=== PATIENT | male | born 1960 | race Caucasian/White ===

== ENCOUNTER → 2020-05-11 14:59 | Outpatient (BNVA) | payer MEDICARE, MEDICAID, SELFPAY | PROVIDERS: PCP Internal Medicine; Referring Provider Internal Medicine; Visit Provider Physician Assistant | DX: Z13.89 Encounter for screening for other disorder (principal) | CPT/HCPCS: Q3014 ==

== ENCOUNTER 2020-09-14 08:43 | Outpatient (REF) | payer OTHER, SELFPAY ==
[2020-09-14 11:38] LABS: Estimated Average Glucose 131 mg/dL; Hemoglobin A1C 189.1864 umol/L; Hemoglobin A1c % 6.2 %
[2020-09-14 12:03] LABS: Alanine Aminotransferase 44 U/L (0-40); Anion Gap 13 (12-20); Aspartate Amino Transferase 29 U/L (5-37); Blood Urea Nitrogen 17 mg/dL (9-16); Calcium 9.4 mg/dL (8.4-10.2); Carbon Dioxide 23 mmol/L (22-29); Chloride 108 mmol/L (96-108); Cholesterol 177 mg/dL; Estimated Glomerular Filt Rate > 60; Glucose Fasting 115 mg/dL (60-99); HDL Cholesterol 45 mg/dL; LDL Cholesterol Calculated 97 mg/dl; Potassium 4.5 mmol/L (3.3-5.1); Sodium 139 mmol/L (135-145); Triglycerides 177 mg/dL
[2020-09-14 12:07] LABS: PSA,Total (Free>4and<10) 1.01 ng/mL (0.00-4.00)
[2020-09-14 12:22] LABS: Creatinine Urine 226.51 mg/dL; Microalbum/Creatinine Ratio Ur 6.6 ug/mg cr
== END 2020-09-14 08:44 | disposition home or self-care (01) ==
LOC: HO.HMGCLDS 08:43
PROVIDERS: PCP Internal Medicine; Visit Provider Internal Medicine
DX: Z00.01 Encounter for general adult medical examination with abnormal findings (principal); Z12.5 Encounter for screening for malignant neoplasm of prostate; E11.9 Type 2 diabetes mellitus without complications; E78.5 Hyperlipidemia, unspecified; J44.9 Chronic obstructive pulmonary disease, unspecified; N40.0 Benign prostatic hyperplasia without lower urinary tract symptoms; I10 Essential (primary) hypertension
CPT/HCPCS: 36415; 80048; 80061; 82043; 83036; 84153; 84450; 84460

== ENCOUNTER 2021-07-20 14:49 | Outpatient (REF) | payer OTHER, SELFPAY ==
[2021-07-20 16:46] LABS: Creatinine Urine 191.36 mg/dL; Microalbum/Creatinine Ratio Ur 11.4 ug/mg cr
[2021-07-20 17:01] LABS: Vitamin D 25-OH Total 20.6 ng/mL (>30)
== END 2021-07-20 14:50 | disposition home or self-care (01) ==
LOC: HO.HMGCLDS 14:49
PROVIDERS: PCP Internal Medicine; Visit Provider Internal Medicine
DX: E11.9 Type 2 diabetes mellitus without complications (principal)
CPT/HCPCS: 36415; 82043; 82306

== ENCOUNTER 2021-10-02 11:15 | Outpatient (REF) | payer OTHER, SELFPAY ==
[2021-10-02 14:39] LABS: Alanine Aminotransferase 56 U/L (0-40); Anion Gap 13 (12-20); Aspartate Amino Transferase 33 U/L (5-37); Blood Urea Nitrogen 12 mg/dL (9-16); Calcium 9.1 mg/dL (8.4-10.2); Carbon Dioxide 22 mmol/L (22-29); Chloride 108 mmol/L (96-108); Cholesterol 172 mg/dL; Estimated Glomerular Filt Rate > 60; Glucose Fasting 139 mg/dL (60-99); HDL Cholesterol 41 mg/dL; LDL Cholesterol Calculated 100 mg/dl; Potassium 4.6 mmol/L (3.3-5.1); Sodium 138 mmol/L (135-145); Triglycerides 159 mg/dL
[2021-10-02 20:18] LABS: Estimated Average Glucose 197 mg/dL; Hemoglobin A1c % 8.5 %
== END 2021-10-02 11:16 | disposition home or self-care (01) ==
LOC: HO.HMGCLDS 11:15
PROVIDERS: Visit Provider Internal Medicine
DX: E78.5 Hyperlipidemia, unspecified (principal); I10 Essential (primary) hypertension; E11.9 Type 2 diabetes mellitus without complications
CPT/HCPCS: 36415; 80048; 80061; 83036; 84450; 84460

== ENCOUNTER 2022-01-11 08:29 | Outpatient (REF) | payer OTHER, SELFPAY ==
[2022-01-11 11:24] LABS: Estimated Average Glucose 140 mg/dL; Hemoglobin A1c % 6.5 %
[2022-01-11 11:51] LABS: Vitamin D 25-OH Total 55.7 ng/mL (>30)
[2022-01-11 11:52] LABS: Alanine Aminotransferase 46 U/L (0-40); Anion Gap 15 (12-20); Aspartate Amino Transferase 31 U/L (5-37); Blood Urea Nitrogen 16 mg/dL (9-16); Calcium 9.2 mg/dL (8.4-10.2); Carbon Dioxide 21 mmol/L (22-29); Chloride 107 mmol/L (96-108); Cholesterol 157 mg/dL; Estimated Glomerular Filt Rate > 60; Glucose Fasting 116 mg/dL (60-99); HDL Cholesterol 50 mg/dL; LDL Cholesterol Calculated 88 mg/dl; Potassium 4.5 mmol/L (3.3-5.1); Sodium 138 mmol/L (135-145); Triglycerides 98 mg/dL
== END 2022-01-11 08:30 | disposition home or self-care (01) ==
LOC: HO.HMGCLDS 08:29
PROVIDERS: PCP Internal Medicine; Visit Provider Internal Medicine
DX: E11.65 Type 2 diabetes mellitus with hyperglycemia (principal); E78.5 Hyperlipidemia, unspecified; E55.9 Vitamin D deficiency, unspecified
CPT/HCPCS: 36415; 80048; 80061; 82306; 83036; 84450; 84460

== ENCOUNTER 2022-08-03 09:05 | Outpatient (REF) | payer OTHER, SELFPAY ==
[2022-08-03 12:03] LABS: Estimated Average Glucose 174 mg/dL; Hemoglobin A1c % 7.7 %
[2022-08-03 12:37] LABS: Alanine Aminotransferase 52 U/L (0-40); Anion Gap 15 (12-20); Aspartate Amino Transferase 33 U/L (5-37); Blood Urea Nitrogen 18 mg/dL (9-16); Calcium 9.5 mg/dL (8.4-10.2); Carbon Dioxide 22 mmol/L (22-29); Chloride 106 mmol/L (96-108); Cholesterol 191 mg/dL; Estimated Glomerular Filt Rate > 60; Glucose Fasting 161 mg/dL (60-99); HDL Cholesterol 41 mg/dL; LDL Cholesterol Calculated 120 mg/dl; PSA,Total (Free>4and<10) 1.01 ng/mL (0.00-4.00); Potassium 4.5 mmol/L (3.3-5.1); Sodium 138 mmol/L (135-145); Triglycerides 154 mg/dL; Vitamin D 25-OH Total 28.5 ng/mL (>30)
[2022-08-03 12:58] LABS: Creatinine Urine 160.14 mg/dL; Microalbum/Creatinine Ratio Ur 16.8 ug/mg cr
== END 2022-08-03 09:06 | disposition home or self-care (01) ==
LOC: HO.HMGCLDS 09:05
PROVIDERS: PCP Internal Medicine; Visit Provider Internal Medicine
DX: N40.0 Benign prostatic hyperplasia without lower urinary tract symptoms (principal); E78.5 Hyperlipidemia, unspecified; E11.9 Type 2 diabetes mellitus without complications; J44.9 Chronic obstructive pulmonary disease, unspecified; Z12.5 Encounter for screening for malignant neoplasm of prostate
CPT/HCPCS: 36415; 80048; 80061; 82043; 82306; 83036; 84153; 84450; 84460

== ENCOUNTER 2022-11-20 07:24 | Outpatient (REF) | payer OTHER, SELFPAY ==
[2022-11-20 11:29] LABS: Estimated Average Glucose 229 mg/dL; Hemoglobin A1c % 9.6 %
[2022-11-20 11:54] LABS: Alanine Aminotransferase 57 U/L (0-40); Anion Gap 12 (12-20); Aspartate Amino Transferase 30 U/L (5-37); Blood Urea Nitrogen 18 mg/dL (9-16); Calcium 9.6 mg/dL (8.4-10.2); Carbon Dioxide 23 mmol/L (22-29); Chloride 103 mmol/L (96-108); Cholesterol 172 mg/dL; Estimated Glomerular Filt Rate > 60; Glucose Fasting 321 mg/dL (60-99); HDL Cholesterol 38 mg/dL; LDL Cholesterol Calculated 69 mg/dl; Potassium 4.3 mmol/L (3.3-5.1); Sodium 134 mmol/L (135-145); Triglycerides 329 mg/dL
[2022-11-20 12:12] LABS: Vitamin D 25-OH Total 65.6 ng/mL (>30)
== END 2022-11-20 07:25 | disposition home or self-care (01) ==
LOC: HO.HMGCLDS 07:24
PROVIDERS: PCP Internal Medicine; Visit Provider Internal Medicine
DX: E11.9 Type 2 diabetes mellitus without complications (principal); E55.9 Vitamin D deficiency, unspecified; E78.5 Hyperlipidemia, unspecified
CPT/HCPCS: 36415; 80048; 80061; 82306; 83036; 84450; 84460

== ENCOUNTER 2023-01-01 12:51 | Outpatient (AMB) | payer OTHER, SELFPAY ==
[2023-01-01 12:52] VITALS: BP 132/78; PULSE 84; O2SAT 96; BMI 28.4
--- NOTE | 2023-01-01 12:52 | MHC.PC.OV ---
Vital Signs 01/01/23 12:52 Height 5 ft 9 in Weight 192 lb BMI 28.4 BP 132/78 Blood Pressure Location Lt brachial Position Sitting Pulse 84 Pulse Source Pulse Oximeter Pulse Oximetry (%) 96 Oxygen Delivery Method Room Air Intake Visit Reasons: 3 month follow up Allergies No Known Allergies [No Known Allergies*] Allergy (Verified 01/01/23 13:12) Medication List - Last Reconciled 01/01/23 by Mariza Berman MD atorvastatin 10 mg PO DAILY blood sugar diagnostic (FreeStyle Lite Strips) Test blood sugar once a day blood-glucose meter (FreeStyle Lite Meter kit) As directed to test blood sugar once a day budesonide-formoterol 160-4.5 mcg/actuation 2 puffs PO BID bupropion HCl 150 mg PO BID calcium carbonate-vitamin D3 600 mg-20 mcg (800 unit) 1 tab PO BEDTIME cholecalciferol (vitamin D3) 1,250 mcg PO QWEEK 30 days dulaglutide (Trulicity) 1.5 mg (0.5 mL) subcut QWEEK 30 days fluticasone propionate 50 mcg/actuation 1 spray intranasal DAILY ipratropium bromide 17 mcg/actuation 2 puffs inhalation QID ipratropium-albuterol 20-100 mcg/actuation (Combivent Respimat) 1 puff inhalation QID lancets (FreeStyle Lancets) test blood sugar once a day metformin 1,000 mg PO BIDWMEAL 90 days montelukast 10 mg PO DAILY omeprazole 20 mg PO QAM quetiapine 100 mg PO DAILY umeclidinium 62.5 mcg/actuation 1 inh inhalation DAILY Tobacco use date assessed: 01/01/23 Dental Screening Dental Screen Date: 01/01/23 Did you have a dental visit in the last 12 months?: No Did you have a dental problem in the last 6 months where you did not have access to dental care?: No Was dental information given to patient?: Patient declined HPI 3 month follow up HPI Details 62-year-old male with diabetes mellitus, hypertension dyslipidemia, here today for his follow-up. Has been taking his medications as directed, but has not been following any diet this past several months, and states that he has not been getting any regular exercise. States that there is a [place] near him and has been eating apple pies, sided donuts, will cider, pasta almost on a daily basis this past few months. Hemoglobin A1c today is at 9.6% and triglycerides have markedly increased as compared to last check. [facility] Medical History (Updated 01/01/23 @ 13:25 by Mariza Berman MD) Uncontrolled diabetes mellitus with hyperglycemia, without long-term current use of insulin Vitamin D deficiency Mass of lower lobe of left lung Lung nodule seen on imaging study Colon cancer screening Cholelithiasis Benign prostatic hyperplasia GERD without esophagitis Obstructive sleep apnea Migraine Dyslipidemia Type 2 diabetes mellitus without complication, without long-term current use of insulin COPD (chronic obstructive pulmonary disease) Surgical History H/O colonoscopy History of amputation of finger History of prostate biopsy History of tonsillectomy Family History Father No problems noted. Mother Cirrhosis of liver Mental health disorder Maternal Grandfather No problems noted. Maternal Grandmother No problems noted. Paternal Grandfather No problems noted. Paternal Grandmother No problems noted. Brother No problems noted. Son No problems noted. Daughter No problems noted. Son No problems noted. Maternal Aunt Substance use disorder Maternal Uncle Substance use disorder Social History Household Members: Significant Other Housing: House Alcohol intake: former Patient Tobacco Use Status: Former Tobacco user Years Smoked: 40 yrs e-Cigarette/Vaping Use: Never Used Current occupational status: disabled Cognitive needs: No Hearing needs: No Vision needs: No Questionnaire PHQ-9 Over the last 2 weeks, how often have you been bothered by any of the following problems? Depression Screening Interpretation: Negative Source: Developed by Drs. Suleiman Thompson, Cherie Carlos, Frank Esqueda and colleagues, with an educational rock from [employer]. Thrive Questionnaire Date Thrive assessed: 08/09/22 AUDIT C Alcohol Use Questionnaire (AUDIT-C) 1. How often do you have a drink containing alcohol?: Never 3. How often do you have six or more drinks on one occasion?: Never Total Score: 0 Score Reviewed/Action Taken: Yes LAZ-7 AMB Questionnaire LAZ-7 Date LAZ - 7 assessed: 08/09/22 Source: Developed by Drs. Suleiman Thompson, Cherie Carlos, Frank Esqueda and colleagues, with an educational rock from [employer]. Review of Systems Const Denies body aches, Denies fatigue, Denies fever(s), Denies headache(s) and Denies weakness Eyes Reports no additional complaints ENT Denies dizziness, Denies headache(s), Denies nasal congestion, Denies nasal discharge and Denies sore throat Card Denies chest pain, Denies lightheadedness, Denies palpitations and Denies dyspnea Resp Denies chest congestion, Denies cough, Denies dyspnea and Reports wheezing (Occasional) GI Denies abdominal pain, Denies change in bowel habits and Denies heartburn Denies dysuria, Reports urinary frequency and Denies urinary urgency Musc Reports no additional complaints Skin/Breast Denies lesions and Denies rash Neuro Denies dizziness, Denies headache(s) and Denies weakness Endo Denies fatigue, Reports polydipsia, Reports polyuria and Denies palpitations Aller/Immun Reports wheezing (Occasional) Physical exam (Primary Care) Vital Signs: Last Vital Signs Pulse 84 01/01/23 12:52 BP 132/78 01/01/23 12:52 Pulse Ox 96 01/01/23 12:52 Oxygen Delivery Method Room Air 01/01/23 12:52 BMI result Body Mass Index 28.4 Tobacco/Smoking Status: Tobacco use Status Tobacco use date assessed 01/01/23 01/01/23 12:53 Patient Tobacco Use Status Former Tobacco user 01/01/23 12:53 e-Cigarette/Vaping Use Never Used 01/01/23 12:53 Depression Screening Interpretation: Negative Thrive Assessment: Date of Thrive Assessment Date Thrive assessed 08/09/22 01/01/23 12:53 Const Other: Alert oriented x3, no acute cardiorespiratory distress Orientation/consciousness: patient oriented x3 HENMT Ears: EAC's normal General nose exam: Normal external nose present and No nasal discharge present Mouth: oropharynx normal and moist mucous membranes Eyes General: appearance normal, both eyes and all related structures Neck Other: Supple, no lymphadenopathy, full range of motion, thyroid gland nonpalpable Resp Auscultation: clear to auscultation bilaterally Cardio Other: S1-S2 present regular rate and rhythm GI Palpation (GI): Soft to palpation, nontender, no guarding and no masses Auscultation: normal bowel sounds Skin General skin exam: no rashes or lesions noted Neuro General: patient oriented x3, gait normal, moves all extremities and no focal motor deficits Extrem General: Yes normal to inspection, Yes full ROM, Yes no joint enlargement, Yes no pedal edema, Yes no calf tenderness and Yes normal gait Results Reviewed Results Reviewed: ENTERED: 11/20/22 MARY SHOEMAKER: ORDERED: Met Prof Fast, AST, ALT, Lipid Panel, Vitamin D 25-OH Test Result Flag Reference Site Sodium 134 L 135-145 mmol/L Potassium 4.3 3.3-5.1 mmol/L CL 103 96-108 mmol/L CO2 23 22-29 mmol/L Gap 12 12-20 BUN 18 H 9-16 mg/dL Creat 1.14 0.5-1.4 mg/dL EGFR > 60 NOTE: For -Chinese individuals, multiply the result by 1.210. Chronic Kidney Disease: Estimated GFR < 60 mL/min/1.73m2 Severe Kidney Disease: Estimated GFR < 15 mL/min/1.73m2 FBS 321 H 60-99 mg/dL A fasting glucose of 126 mg/dl or greater on more than one occasion is considered diagnostic of diabetes. CA 9.6 8.4-10.2 mg/dL AST (GOT) 30 5-37 U/L ALT (GPT) 57 H 0-40 U/L Triglyceride 329 mg/dL Desirable Triglyceride: less than 150 mg/dL Borderline High Triglyceride 150-199 mg/dL High Triglyceride: 200-499 mg/dL Very High Triglyceride: greater than or equal to 5OO mg/dL Chol 172 mg/dL Desirable Cholesterol: less than 200 mg/dL Borderline High Cholesterol: 200-239 mg/dL High Cholesterol: greater than 239 mg/dL LDL Calculated 69 mg/dl Desirable LDL: less than 100 mg/dL Near Optimal/Above Optimal LDL: 110-129 mg/dL Borderline High LDL: 130-159 mg/dL High LDL: 160-189 mg/dL Very High LDL: greater than or equal to 190 mg/dL HDL 38 mg/dL Desirable HDL: greater than 40 mg/dL Note: This HDL assay may give artificially low results in patients with liver disease. Vit D 25-OH Tot 65.6 >30 ng/mL Health Based Reference Values* < 20 ng/mL Deficient 20-30 ng/mL Insufficient > 30 ng/mL Sufficient Laboratory Tests 11/20/22 07:28 Estimat Average Glucose 229 Hemoglobin A1c % 9.6 Assessment and Plan Assessment & Plan (1) Dyslipidemia: Code(s): E78.5 - Hyperlipidemia, unspecified Plan: Reviewed recent fasting lipid profile with patient with levels higher triglyceride levels. Continue with atorvastatin but dose increased to 10 mg daily. Stressed importance of adherence to low-cholesterol diet and regular exercise, at least 30 minutes 3 to 4 times a week. Advised patient to make healthy food choices, eat more fruits, vegetables, whole grains, wild caught fish and low-fat dairy. Limit amount of meat and fried or fatty food products, as well as processed foods and fast foods. Follow-up scheduled with repeat fasting lipid panel in 3 months. (2) Uncontrolled diabetes mellitus with hyperglycemia, without long-term current use of insulin: Code(s): E11.65 - Type 2 diabetes mellitus with hyperglycemia Plan: Diabetes mellitus not controlled, with a hemoglobin A1c at 9.6%, emphasized importance of following recommended diet, getting regular exercise. Continued on present treatment. Will repeat labs again in 3 months Orders: Orders Aspartate Amino Transferase 03/08/23 E11.65 - Type 2 diabetes mellitus with hyperglycemia, E55.9 - Vitamin D deficiency, unspecified, E78.5 - Hyperlipidemia, unspecified Basic Metabolic Panel Fasting 03/08/23 E11.65 - Type 2 diabetes mellitus with hyperglycemia, E55.9 - Vitamin D deficiency, unspecified, E78.5 - Hyperlipidemia, unspecified Vitamin D 25-OH Total 03/08/23 E11.65 - Type 2 diabetes mellitus with hyperglycemia, E55.9 - Vitamin D deficiency, unspecified, E78.5 - Hyperlipidemia, unspecified Hemoglobin A1c 03/08/23 E11.65 - Type 2 diabetes mellitus with hyperglycemia, E55.9 - Vitamin D deficiency, unspecified, E78.5 - Hyperlipidemia, unspecified Alanine Aminotransferase 03/08/23 E11.65 - Type 2 diabetes mellitus with hyperglycemia, E55.9 - Vitamin D deficiency, unspecified, E78.5 - Hyperlipidemia, unspecified Lipid Panel 03/08/23 E11.65 - Type 2 diabetes mellitus with hyperglycemia, E55.9 - Vitamin D deficiency, unspecified, E78.5 - Hyperlipidemia, unspecified Medications: Refilled atorvastatin 10 mg PO DAILY 90 tabs 3RF dulaglutide (Trulicity) 1.5 mg (0.5 mL) subcut QWEEK 30 days 6 mL 3RF E11.9 - Type 2 diabetes mellitus without complications metformin 1,000 mg PO BIDWMEAL 90 days 180 tabs 3RF Coding Level of Care Code Est Pt Level 4 (70875) Diagnoses Dyslipidemia E78.5 Uncontrolled diabetes mellitus with hyperglycemia, without long-term current use of insulin E11.65
== END 2023-01-01 13:55 | disposition home or self-care (01) ==
PROVIDERS: PCP Internal Medicine; Visit Provider Internal Medicine
DX: E78.5 Hyperlipidemia, unspecified (principal); E11.65 Type 2 diabetes mellitus with hyperglycemia
CPT/HCPCS: 99214

== ENCOUNTER 2023-03-27 08:41 | Outpatient (REF) | payer OTHER, SELFPAY ==
[2023-03-27 11:54] LABS: Estimated Average Glucose 169 mg/dL; Hemoglobin A1c % 7.5 % (<6.0)
[2023-03-27 12:24] LABS: Alanine Aminotransferase 38 U/L (0-40); Anion Gap 14 (12-20); Aspartate Amino Transferase 23 U/L (5-37); Blood Urea Nitrogen 17 mg/dL (9-16); Calcium 9.5 mg/dL (8.4-10.2); Carbon Dioxide 22 mmol/L (22-29); Chloride 108 mmol/L (96-108); Cholesterol 164 mg/dL (<200); Estimated Glomerular Filt Rate > 60; Glucose Fasting 128 mg/dL (60-99); HDL Cholesterol 47 mg/dL (>40); LDL Cholesterol Calculated 83 mg/dL (<100); Potassium 4.3 mmol/L (3.3-5.1); Sodium 140 mmol/L (135-145); Triglycerides 171 mg/dL (<150)
[2023-03-27 12:40] LABS: Vitamin D 25-OH Total 38.9 ng/mL (>30)
== END 2023-03-27 08:42 | disposition home or self-care (01) ==
LOC: HO.HMGCLDS 08:41
PROVIDERS: PCP Internal Medicine; Visit Provider Internal Medicine
DX: E11.65 Type 2 diabetes mellitus with hyperglycemia (principal); E55.9 Vitamin D deficiency, unspecified; E78.5 Hyperlipidemia, unspecified
CPT/HCPCS: 36415; 80048; 80061; 82306; 83036; 84450; 84460

== ENCOUNTER 2023-03-29 10:14 | Outpatient (AMB) | payer OTHER, SELFPAY ==
--- NOTE | 2023-03-29 10:25 | MHC.PC.OV ---
Vital Signs 03/29/23 10:29 Height 5 ft 9 in Weight 200 lb BMI 29.5 BP 128/76 Blood Pressure Location Rt brachial Position Sitting Pulse 80 Pulse Source Pulse Oximeter Pulse Oximetry (%) 96 Oxygen Delivery Method Room Air Intake Visit Reasons: follow up Intake Note: pt is here for follow up, routine Bow Machine Operator Required: No Accompanied by: Self / Same As Patient Allergies No Known Allergies [No Known Allergies*] Allergy (Verified 03/29/23 11:37) Medication List - Last Reconciled 03/29/23 by Mariza Berman MD atorvastatin 10 mg PO DAILY blood sugar diagnostic (FreeStyle Lite Strips) Test blood sugar once a day blood-glucose meter (FreeStyle Lite Meter kit) As directed to test blood sugar once a day budesonide-formoterol 160-4.5 mcg/actuation 2 puffs PO BID fluticasone propionate 50 mcg/actuation 1 spray intranasal DAILY ipratropium bromide 17 mcg/actuation 2 puffs inhalation QID ipratropium-albuterol 20-100 mcg/actuation (Combivent Respimat) 1 puff inhalation QID lancets (FreeStyle Lancets) test blood sugar once a day metformin 1,000 mg PO BIDWMEAL 90 days omeprazole 20 mg PO QAM quetiapine 100 mg PO DAILY Trulicity (dulaglutide) 1.5 mg (0.5 mL) subcut QWEEK 30 days NS umeclidinium 62.5 mcg/actuation 1 inh inhalation DAILY Tobacco use date assessed: 03/29/23 Dental Screening Dental Screen Date: 03/29/23 HPI follow up HPI Details 62-year-old male with hypercholesterolemia, diabetes mellitus, without long-term insulin use, history of vitamin-D deficiency, dyslipidemia, here today for follow-up. Has been compliant with taking his medications, and tries to follow recommended diet and has been getting regular exercise. Recent fasting labs done which showed improvement in his diabetes control now with hemoglobin A1c down to 7.5%, fasting lipids are all within normal limits except for mildly elevated triglycerides. [facility] Medical History Uncontrolled diabetes mellitus with hyperglycemia, without long-term current use of insulin Vitamin D deficiency Mass of lower lobe of left lung Lung nodule seen on imaging study Colon cancer screening Cholelithiasis Benign prostatic hyperplasia GERD without esophagitis Obstructive sleep apnea Migraine Dyslipidemia Type 2 diabetes mellitus without complication, without long-term current use of insulin COPD (chronic obstructive pulmonary disease) Surgical History H/O colonoscopy History of amputation of finger History of prostate biopsy History of tonsillectomy Family History Father No problems noted. Mother Cirrhosis of liver Mental health disorder Maternal Grandfather No problems noted. Maternal Grandmother No problems noted. Paternal Grandfather No problems noted. Paternal Grandmother No problems noted. Brother No problems noted. Son No problems noted. Daughter No problems noted. Son No problems noted. Maternal Aunt Substance use disorder Maternal Uncle Substance use disorder Social History Household Members: Significant Other Housing: House Alcohol intake: former Patient Tobacco Use Status: Former Tobacco user Years Smoked: 40 yrs e-Cigarette/Vaping Use: Never Used service: No Current occupational status: disabled Cognitive needs: No Hearing needs: No Vision needs: No Questionnaire PHQ-9 Over the last 2 weeks, how often have you been bothered by any of the following problems? Depression Screening Interpretation: Negative Depression Screening Done: Yes Source: Developed by Drs. Suleiman Thompson, Cherie Carlos, Frank Esqueda and colleagues, with an educational rock from [employer]. Thrive Questionnaire Date Thrive assessed: 08/09/22 LAZ-7 AMB Questionnaire ALZ-7 Date LAZ - 7 assessed: 08/09/22 Source: Developed by Drs. Suleiman Thompson, Cherie Carlos, Frank Esqueda and colleagues, with an educational rock from [employer]. Review of Systems Const Denies body aches, Denies fatigue, Denies fever(s), Denies headache(s) and Denies weakness Eyes Reports no additional complaints ENT Denies dizziness, Denies headache(s), Denies nasal congestion, Denies nasal discharge and Denies sore throat Card Denies chest pain, Denies lightheadedness and Denies dyspnea Resp Denies chest congestion, Denies cough and Denies dyspnea GI Denies abdominal pain, Denies change in bowel habits and Denies heartburn Denies dysuria, Reports urinary frequency and Denies urinary urgency Musc Reports no additional complaints Skin/Breast Denies lesions and Denies rash Neuro Denies dizziness, Denies headache(s) and Denies weakness Endo Denies fatigue, Denies polydipsia and Denies polyuria Physical exam (Primary Care) Vital Signs: Last Vital Signs Pulse 80 03/29/23 10:29 BP 128/76 03/29/23 10:29 Pulse Ox 96 03/29/23 10:29 Oxygen Delivery Method Room Air 03/29/23 10:29 BMI result Body Mass Index 29.5 Tobacco/Smoking Status: Tobacco use Status Tobacco use date assessed 03/29/23 03/29/23 10:32 Patient Tobacco Use Status Former Tobacco user 03/29/23 10:26 e-Cigarette/Vaping Use Never Used 03/29/23 10:26 Depression Screening Interpretation: Negative Thrive Assessment: Date of Thrive Assessment Date Thrive assessed 08/09/22 03/29/23 10:26 Const Other: Alert oriented x3, no acute cardiorespiratory distress Orientation/consciousness: patient oriented x3 HENMT Ears: EAC's normal General nose exam: Normal external nose present and No nasal discharge present Mouth: oropharynx normal and moist mucous membranes Eyes General: appearance normal, both eyes and all related structures Neck Other: Supple, no lymphadenopathy, full range of motion, thyroid gland nonpalpable Resp Auscultation: clear to auscultation bilaterally Cardio Other: S1-S2 present regular rate and rhythm GI Palpation (GI): Soft to palpation, nontender, no guarding and no masses Auscultation: normal bowel sounds Skin General skin exam: no rashes or lesions noted Neuro General: patient oriented x3, gait normal, moves all extremities and no focal motor deficits Extrem General: Yes normal to inspection, Yes full ROM, Yes no joint enlargement, Yes no pedal edema, Yes no calf tenderness and Yes normal gait Results Reviewed Results Reviewed: Laboratory Tests 11/20/22 03/27/23 03/27/23 07:28 09:02 09:02 Estimat Average Glucose 229 169 Hemoglobin A1c % 9.6 7.5 H Name: ElijahAdryan Trinity Age/Sex: 62/M : 1960 Unit#: [id number] Attend Dr: Mariza Berman MD Re03/27/23 Status: DEP REF Location: [facility] Disch: SPEC : [id number] ANUP: 03/27/23 STATUS: COMP REQ : [id number] RECD: 03/27/23-[address]: Mariza Berman MD COMP: 03/27/23 ENTERED: 03/27/[address] [facility] DR: ORDERED: Met Prof Fast, AST, ALT, Lipid Panel, Vitamin D 25-OH Test Result Flag Reference Site Sodium 140 135-145 mmol/L Potassium 4.3 3.3-5.1 mmol/L CL 108 96-108 mmol/L CO2 22 22-29 mmol/L Gap 14 12-20 BUN 17 H 9-16 mg/dL Creat 0.83 0.5-1.4 mg/dL EGFR > 60 NOTE: For -Macedonian individuals, multiply the result by 1.210. Chronic Kidney Disease: Estimated GFR < 60 mL/min/1.73m2 Severe Kidney Disease: Estimated GFR < 15 mL/min/1.73m2 FBS 128 H 60-99 mg/dL A fasting glucose of 126 mg/dl or greater on more than one occasion is considered diagnostic of diabetes. CA 9.5 8.4-10.2 mg/dL AST (GOT) 23 5-37 U/L ALT (GPT) 38 0-40 U/L Triglyceride 171 H <150 mg/dL Desirable Triglyceride: less than 150 mg/dL Borderline High Triglyceride 150-199 mg/dL High Triglyceride: 200-499 mg/dL Very High Triglyceride: greater than or equal to 5OO mg/dL Cholesterol 164 <200 mg/dL Desirable Cholesterol: less than 200 mg/dL Borderline High Cholesterol: 200-239 mg/dL High Cholesterol: greater than 239 mg/dL LDL Calculated 83 <100 mg/dL Desirable LDL: less than 100 mg/dL Near Optimal/Above Optimal LDL: 110-129 mg/dL Borderline High LDL: 130-159 mg/dL High LDL: 160-189 mg/dL Very High LDL: greater than or equal to 190 mg/dL HDL 47 >40 mg/dL Desirable HDL: greater than 40 mg/dL Note: This HDL assay may give artificially low results in patients with liver disease. Vit D 25-OH Tot 38.9 >30 ng/mL Health Based Reference Values* < 20 ng/mL Deficient 20-30 ng/mL Insufficient > 30 ng/mL Sufficient Assessment and Plan Assessment & Plan (1) Uncontrolled diabetes mellitus with hyperglycemia, without long-term current use of insulin: Code(s): E11.65 - Type 2 diabetes mellitus with hyperglycemia Plan: Improved control of his diabetes mellitus, now with a hemoglobin A1c at 7. 5 %. Continued on for 1000 mg 1 tablet twice a day with meals and Trulicity 1.5 mg Q weekly. Up-to-date with his yearly diabetic retinopathy screening, goes to [facility] (2) Dyslipidemia: Code(s): E78.5 - Hyperlipidemia, unspecified Plan: Reviewed recent fasting lipid profile with patient with levels at goal except for mildly elevated triglycerides . Continue with atorvastatin 10 mg daily , in addition to adherence to low-cholesterol diet and regular exercise, at least 30 minutes 3 to 4 times a week. Advised patient to make healthy food choices, eat more fruits, vegetables, whole grains, wild caught fish and low-fat dairy. Limit amount of meat and fried or fatty food products, as well as processed foods and fast foods. Follow-up scheduled with repeat fasting lipid panel in months. (3) COPD (chronic obstructive pulmonary disease): Code(s): J44.9 - Chronic obstructive pulmonary disease, unspecified Qualifiers: COPD type: unspecified COPD Qualified Code(s): J44.9 - Chronic obstructive pulmonary disease, unspecified Plan: Followed by Pulmonary Orders: Orders Hemoglobin A1c 07/08/23 E11.65 - Type 2 diabetes mellitus with hyperglycemia, E78.5 - Hyperlipidemia, unspecified Alanine Aminotransferase 07/08/23 E11.65 - Type 2 diabetes mellitus with hyperglycemia, E78.5 - Hyperlipidemia, unspecified Aspartate Amino Transferase 07/08/23 E11.65 - Type 2 diabetes mellitus with hyperglycemia, E78.5 - Hyperlipidemia, unspecified Basic Metabolic Panel Fasting 07/08/23 E11.65 - Type 2 diabetes mellitus with hyperglycemia, E78.5 - Hyperlipidemia, unspecified Lipid Panel 07/08/23 E11.65 - Type 2 diabetes mellitus with hyperglycemia, E78.5 - Hyperlipidemia, unspecified Microalbumin, Random (w Creat) 07/08/23 E11.65 - Type 2 diabetes mellitus with hyperglycemia, E78.5 - Hyperlipidemia, unspecified Medications: Changed From dulaglutide (Trulicity) 1.5 mg (0.5 mL) subcut QWEEK 30 days 6 mL 3RF E11.9 - Type 2 diabetes mellitus without complications To Trulicity (dulaglutide) 1.5 mg (0.5 mL) subcut QWEEK 30 days 2 mL 6RF NS E11.9 - Type 2 diabetes mellitus without complications Coding Level of Care Code Est Pt Level 3 (89645) Diagnoses Uncontrolled diabetes mellitus with hyperglycemia, without long-term current use of insulin E11.65 Dyslipidemia E78.5 Chronic obstructive pulmonary disease, unspecified COPD type J44.9 COPD type: unspecified COPD
[2023-03-29 10:29] VITALS: BP 128/76; PULSE 80; O2SAT 96; BMI 29.5
== END 2023-03-29 11:44 | disposition home or self-care (01) ==
PROVIDERS: PCP Internal Medicine; Visit Provider Internal Medicine
DX: E11.65 Type 2 diabetes mellitus with hyperglycemia (principal); E78.5 Hyperlipidemia, unspecified; J44.9 Chronic obstructive pulmonary disease, unspecified
CPT/HCPCS: 99213

== ENCOUNTER 2023-07-26 08:00 | Outpatient (REF) | payer OTHER, SELFPAY ==
[2023-07-26 11:09] LABS: Estimated Average Glucose 148 mg/dL; Hemoglobin A1c % 6.8 % (<6.0)
[2023-07-26 11:20] LABS: Alanine Aminotransferase 50 U/L (0-40); Anion Gap 12 (12-20); Aspartate Amino Transferase 30 U/L (5-37); Blood Urea Nitrogen 28 mg/dL (9-16); Calcium 9.4 mg/dL (8.4-10.2); Carbon Dioxide 23 mmol/L (22-29); Chloride 109 mmol/L (96-108); Cholesterol 178 mg/dL (<200); Estimated Glomerular Filt Rate > 60; Glucose Fasting 139 mg/dL (60-99); HDL Cholesterol 45 mg/dL (>40); LDL Cholesterol Calculated 103 mg/dL (<100); Potassium 4.1 mmol/L (3.3-5.1); Sodium 140 mmol/L (135-145); Triglycerides 152 mg/dL (<150)
[2023-07-26 11:34] LABS: Creatinine Urine 120.02 mg/dL; Microalbum/Creatinine Ratio Ur 9.1 ug/mg cr (<30)
== END 2023-07-26 08:01 | disposition home or self-care (01) ==
LOC: HO.HMGCLDS 08:00
PROVIDERS: PCP Internal Medicine; Visit Provider Internal Medicine
DX: E11.65 Type 2 diabetes mellitus with hyperglycemia (principal); E78.5 Hyperlipidemia, unspecified
CPT/HCPCS: 36415; 80048; 80061; 82043; 82570; 83036; 84450; 84460

== ENCOUNTER 2023-07-29 09:21 | Outpatient (AMB) | payer OTHER, SELFPAY ==
[2023-07-29 09:42] VITALS: BP 142/70; PULSE 77; O2SAT 95; BMI 29.7
--- NOTE | 2023-07-29 09:42 | MHC.PC.OV ---
Vital Signs 07/29/23 09:42 Height 5 ft 9 in Weight 201 lb BMI 29.7 BP 142/70 H Blood Pressure Location Rt brachial Position Sitting Pulse 77 Pulse Source Pulse Oximeter Pulse Oximetry (%) 95 Oxygen Delivery Method Room Air Intake Visit Reasons: Annual PE- see comments Intake Note: Pt is here today for his PE: Allergies No Known Allergies [No Known Allergies*] Allergy (Verified 07/29/23 10:13) Medication List - Last Reconciled 07/29/23 by Mariza Berman MD atorvastatin 10 mg PO DAILY blood sugar diagnostic (FreeStyle Lite Strips) Test blood sugar once a day blood-glucose meter (FreeStyle Lite Meter kit) As directed to test blood sugar once a day budesonide-formoterol 160-4.5 mcg/actuation 2 puffs PO BID fluticasone propionate 50 mcg/actuation 1 spray intranasal DAILY ipratropium bromide 17 mcg/actuation 2 puffs inhalation QID ipratropium-albuterol 20-100 mcg/actuation (Combivent Respimat) 1 puff inhalation QID lancets (FreeStyle Lancets) test blood sugar once a day metformin 1,000 mg PO BIDWMEAL 90 days omeprazole 20 mg PO QAM quetiapine 100 mg PO DAILY umeclidinium 62.5 mcg/actuation 1 inh inhalation DAILY Tobacco use date assessed: 07/29/23 Dental Screening Dental Screen Date: 07/29/23 Did you have a dental visit in the last 12 months?: No Was dental information given to patient?: Patient declined HPI Annual PE- see comments HPI Details 63-year-old male here today for his physical exam. He has hyperlipidemia currently on atorvastatin taken 10 mg once daily, and has diabetes mellitus for which he takes metformin a 1000 mg twice a day and was on Trulicity but to unable to get this prescription filled for the last 3 weeks now due to his dose being out of stock. He had recent fasting labs done which showed hemoglobin A1c at 6.8%. Blood pressure mildly elevated on today's visit, patient states that he has been dealing with lot of family stress at home. Does not want to seek help with counseling or start any medications for depression and anxiety at present time. He has a lung nodule found incidentally on CT scan, gets low-dose CT scan screenings yearly He is also currently being followed by Dr. Reyna for his asthma / COPD overlap syndrome. Patient states that he frequently forgets to take his Symbicort at night, but rarely has needed to use her albuterol in the last 3 months. [facility] Medical History (Updated 07/30/23 @ 00:44 by Mariza Berman MD) Anxiety and depression Uncontrolled diabetes mellitus with hyperglycemia, without long-term current use of insulin Vitamin D deficiency Mass of lower lobe of left lung Colon cancer screening Cholelithiasis Benign prostatic hyperplasia GERD without esophagitis Obstructive sleep apnea Migraine Dyslipidemia Type 2 diabetes mellitus without complication, without long-term current use of insulin COPD (chronic obstructive pulmonary disease) Surgical History H/O colonoscopy History of amputation of finger History of prostate biopsy History of tonsillectomy Family History Father No problems noted. Mother Cirrhosis of liver Mental health disorder Maternal Grandfather No problems noted. Maternal Grandmother No problems noted. Paternal Grandfather No problems noted. Paternal Grandmother No problems noted. Brother No problems noted. Son No problems noted. Daughter No problems noted. Son No problems noted. Maternal Aunt Substance use disorder Maternal Uncle Substance use disorder Social History Household Members: Significant Other Housing: House Alcohol intake: former Patient Tobacco Use Status: Former Tobacco user Years Smoked: 40 yrs e-Cigarette/Vaping Use: Never Used service: No Current occupational status: disabled Cognitive needs: No Hearing needs: No Vision needs: No Questionnaire PHQ-9 Over the last 2 weeks, how often have you been bothered by any of the following problems? 1. Little interest or pleasure in doing things: several days 2. Feeling down, depressed, or hopeless: several days 3. Trouble falling or staying asleep, or sleeping too much: several days 4. Feeling tired or having little energy: several days 5. Poor appetite or overeating: not at all 6. Feeling bad about yourself - or that you are a failure or have let yourself or your family down: several days 7. Trouble concentrating on things, such as reading the newspaper or watching television: several days 8. Moving or speaking so slowly that other people could have noticed. Or the opposite - being so fidgety or restless that you have been moving around a lot more than usual: not at all 9. Thoughts that you would be better off or of hurting yourself in some way: not at all Total score: 6 Depression Screening Interpretation: Positive (Does not want to see a therapist or start medication at present time) Depression Screening Follow-up: Declines treatment Depression Screening Done: Yes Source: Developed by Drs. Suleiman Thompson, Cherie Carlos, Frank Esqueda and colleagues, with an educational rock from [employer]. Thrive Questionnaire Date Thrive assessed: 07/29/23 I am a: Patient What is your living situation today?: I have a steady place to live Within the past 12 months, did the food you bought not last and you didn't have the money to get more?: Often true Within the past 12 months, did you worry whether your food would run out before you got money to buy more?: Often true Do you have trouble paying for medicines?: No Do you have trouble getting transportation to medical appointments?: No Do you have trouble paying your heating and electricity bill?: No Do you have trouble taking care of your child, family member or friend?: No Do you have trouble with day-to-day activities such as bathing, preparing meals, shopping, managing finances, etc.?: No Are you currently unemployed and looking for a job?: No Are you interested in more education?: No THRIVE Score: 2 LAZ-7 AMB Questionnaire LAZ-7 Date LAZ - 7 assessed: 07/29/23 Feeling nervous, anxious, or on edge: 1 = Several days Not being able to stop or control worryin = Several days Worrying too much about different things: 1 = Several days Trouble relaxin = Not at all Being so restless that it is hard to sit still: 0 = Not at all Becoming easily annoyed or irritable: 1 = Several days Feeling afraid as if something awful might happen: 1 = Several days Total LAZ-7 score (0-4 normal; 5-9 mild; 10-14 moderate; 15-21 severe): 5 Source: Developed by Drs. Suleiman Thompson, Cherie Carlos, Frank Esqueda and colleagues, with an educational rock from [employer]. LAZ-7 Assessment Billing LAZ-7 Assessment Tool: LAZ-7 Assessment 30260 Review of Systems Const Denies body aches, Denies fatigue, Denies fever(s), Denies headache(s) and Denies weakness Eyes Reports no additional complaints ENT Denies dizziness, Denies headache(s), Denies nasal congestion, Denies nasal discharge and Denies sore throat Card Denies chest pain, Denies lightheadedness and Denies dyspnea Resp Denies chest congestion, Denies cough and Denies dyspnea GI Denies abdominal pain, Denies change in bowel habits and Denies heartburn Denies dysuria and Denies urinary urgency Musc Reports no additional complaints Skin/Breast Denies lesions and Denies rash Neuro Denies dizziness, Denies headache(s) and Denies weakness Psych Reports as per HPI Endo Denies fatigue, Denies polydipsia and Denies polyuria Arben/Lymph Reports no additional complaints Aller/Immun Reports no additional complaints Physical exam (Primary Care) Vital Signs: Last Vital Signs Pulse 77 07/29/23 09:42 BP 142/70 H 07/29/23 09:42 Pulse Ox 95 07/29/23 09:42 Oxygen Delivery Method Room Air 07/29/23 09:42 BMI result Body Mass Index 29.7 Tobacco/Smoking Status: Tobacco use Status Tobacco use date assessed 07/29/23 07/29/23 09:45 Patient Tobacco Use Status Former Tobacco user 07/29/23 09:45 e-Cigarette/Vaping Use Never Used 07/29/23 09:45 PHQ-9: PHQ-9 Score PHQ-9: Total score 6 07/30/23 00:13 Depression Screening Interpretation: Positive (Does not want to see a therapist or start medication at present time) Depression Screening Follow-up: Declines treatment Thrive Assessment: Date of Thrive Assessment Date Thrive assessed 07/29/23 07/29/23 09:55 Const Other: Alert oriented x3, no acute cardiorespiratory distress Orientation/consciousness: patient oriented x3 HENMT Ears: EAC's normal General nose exam: Normal external nose present and No nasal discharge present Mouth: oropharynx normal and moist mucous membranes Eyes General: appearance normal, both eyes and all related structures Neck Other: Supple, no lymphadenopathy, full range of motion, thyroid gland nonpalpable Resp Auscultation: clear to auscultation bilaterally Cardio Other: S1-S2 present regular rate and rhythm GI Palpation (GI): Soft to palpation, nontender, no guarding and no masses Auscultation: normal bowel sounds General: Yes no CVA tenderness Male General Exam: Yes normal external exam Back/Spine/Pelvis Back: no CVA tenderness and No back tenderness Skin General skin exam: no rashes or lesions noted Neuro General: patient oriented x3, gait normal, moves all extremities and no focal motor deficits Extrem General: Yes normal to inspection, Yes full ROM, Yes no joint enlargement, Yes no pedal edema, Yes no calf tenderness and Yes normal gait Psych Appearance: grossly normal and well kempt Mental Status: mental status grossly normal Speech and movement: Normal speech and movement present Affect: normal affect Attitude: cooperative Thought process: Normal thought process present Results Reviewed Results Reviewed: Name: Adryan Nava Age/Sex: 63/M : 1960 Unit#: [id number] Attend Dr: Mariza Berman MD Re07/26/23 Status: DEP REF Location: [facility] Disch: SPEC : [id number] ANUP: 07/26/23 STATUS: COMP REQ : [id number] RECD: 07/26/23-[address]: Mariza Berman MD COMP: 07/26/23 ENTERED: 07/26/23 [facility] DR: ORDERED: Met Prof Fast, AST, ALT, Lipid Panel Test Result Flag Reference Sodium 140 135-145 mmol/L Potassium 4.1 3.3-5.1 mmol/L CL 109 H 96-108 mmol/L CO2 23 22-29 mmol/L Gap 12 12-20 BUN 28 H 9-16 mg/dL Creat 0.97 0.5-1.4 mg/dL EGFR > 60 NOTE: For -[place] Citizen individuals, multiply the result by 1.210. Chronic Kidney Disease: Estimated GFR < 60 mL/min/1.73m2 Severe Kidney Disease: Estimated GFR < 15 mL/min/1.73m2 FBS 139 H 60-99 mg/dL A fasting glucose of 126 mg/dl or greater on more than one occasion is considered diagnostic of diabetes. CA 9.4 8.4-10.2 mg/dL AST (GOT) 30 5-37 U/L ALT (GPT) 50 H 0-40 U/L Triglyceride 152 H <150 mg/dL Desirable Triglyceride: less than 150 mg/dL Borderline High Triglyceride 150-199 mg/dL High Triglyceride: 200-499 mg/dL Very High Triglyceride: greater than or equal to 5OO mg/dL Cholesterol 178 <200 mg/dL Desirable Cholesterol: less than 200 mg/dL Borderline High Cholesterol: 200-239 mg/dL High Cholesterol: greater than 239 mg/dL LDL Calculated 103 H <100 mg/dL Desirable LDL: less than 100 mg/dL Near Optimal/Above Optimal LDL: 110-129 mg/dL Borderline High LDL: 130-159 mg/dL High LDL: 160-189 mg/dL Very High LDL: greater than or equal to 190 mg/dL HDL 45 >40 mg/dL Desirable HDL: greater than 40 mg/dL Note: This HDL assay may give artificially low results in patients with liver disease. Laboratory Tests 07/26/23 08:13 Estimat Average Glucose 148 Hemoglobin A1c % 6.8 H Laboratory Tests 07/26/23 08:13 Urine Creatinine 120.02 Urine Microalbumin 11.0 Microalb/Creat Ratio 9.1 Assessment and Plan Assessment & Plan (1) Annual visit for general adult medical examination with abnormal findings: Code(s): Z00.01 - Encounter for general adult medical examination with abnormal findings Plan: Latest fasting lab results discussed with patient Recommended dental visit every 6 months and regular eye exams,yearly . Take adequate calcium in diet and vitamin-D 3 at 2000 IU per cap once a day, in addition to weight-bearing exercises to help maintain good muscle tone and weight control. Instructed to do testicular exam check for any mass. Referred for screening colonoscopy. Has had COVID vaccines in the past but does not want to get the booster, reminded to get yearly flu shot, Prevnar 20 to be given today, up-to-date with his Tdap (2) Uncontrolled diabetes mellitus with hyperglycemia, without long-term current use of insulin: Code(s): E11.65 - Type 2 diabetes mellitus with hyperglycemia Plan: Her will continue on metformin a 1000 mg 1 taken 1 tablet twice a day with meals and will start on Mounjaro , 2.5 mg injected weekly, discussed possible side effects of the medication and how to administer it. Reinforced importance of following a diabetic diet, getting regular exercise. Up-to-date with his diabetes retinopathy screening, goes to [facility]. Up-to-date with his pneumonia vaccination and Tdap, reminded to get his yearly flu vaccine, has had shingles vaccine in the past but does not want to get the booster (3) Colon cancer screening: Code(s): Z12.11 - Encounter for screening for malignant neoplasm of colon Plan: Referred for screening colonoscopy (4) Mass of lower lobe of left lung: Comment: 8 mm oval nodule on left medial lower lobe seen on low-dose CT scan done 06/13/2020, increasing in size previous size was 5.5 mm Gets yearly low-dose CT scan screening, now sees Dr. Lakeisha Barone Code(s): R91.8 - Other nonspecific abnormal finding of lung field Plan: Gets yearly low-dose CT screenings done at [place] (5) GERD without esophagitis: Code(s): K21.9 - Gastro-esophageal reflux disease without esophagitis Plan: Continue omeprazole 20 mg daily (6) Obstructive sleep apnea: Code(s): G47.33 - Obstructive sleep apnea (adult) (pediatric) Plan: Mild RAJEEV noted dense sleep study, no CPAP ordered (7) Dyslipidemia: Code(s): E78.5 - Hyperlipidemia, unspecified Plan: Fasting lipids are almost within normal limits with an LDL of 103 mg/dL insert mildly elevated triglycerides. Will continue on 10 mg of atorvastatin daily, reinforced importance of following low-cholesterol diet and getting regular exercise (8) COPD (chronic obstructive pulmonary disease): Code(s): J44.9 - Chronic obstructive pulmonary disease, unspecified Qualifiers: COPD type: unspecified COPD Qualified Code(s): J44.9 - Chronic obstructive pulmonary disease, unspecified Plan: Followed by Pulmonary (9) Anxiety and depression: Code(s): F41.9 - Anxiety disorder, unspecified; F32.A - Depression, unspecified Plan: Patient states that he has been able to manage and control his anxiety depression on his own. Has good family support, does not want referral to see psychiatrist or therapist at present time Orders: Referrals Gastroenterology Referral Z12.11 - Encounter for screening for malignant neoplasm of colon Medications: New tirzepatide (Mounjaro) 2.5 mg (0.5 mL) subcut QWEEK 4 weeks 2 mL 3RF E11.65 - Type 2 diabetes mellitus with hyperglycemia Coding Level of Care Code Est Pt Prev Care 40-64y(32129) Diagnoses Annual visit for general adult medical examination with abnormal findings Z00.01 Uncontrolled diabetes mellitus with hyperglycemia, without long-term current use of insulin E11.65 Colon cancer screening Z12.11 Mass of lower lobe of left lung R91.8 GERD without esophagitis K21.9 Obstructive sleep apnea G47.33 Dyslipidemia E78.5 Chronic obstructive pulmonary disease, unspecified COPD type J44.9 COPD type: unspecified COPD Anxiety and depression F41.9; F32.A Additional Codes LAZ-7 Assessment Billing - LAZ-7 Assessment Tool: LAZ-7 Assessment [id number] ([id number])
== END 2023-07-29 10:32 | disposition home or self-care (01) ==
PROVIDERS: PCP Internal Medicine; Visit Provider Internal Medicine
DX: Z00.00 Encounter for general adult medical examination without abnormal findings (principal); E11.65 Type 2 diabetes mellitus with hyperglycemia; J44.9 Chronic obstructive pulmonary disease, unspecified; Z12.11 Encounter for screening for malignant neoplasm of colon; R91.8 Other nonspecific abnormal finding of lung field; K21.9 Gastro-esophageal reflux disease without esophagitis; G47.33 Obstructive sleep apnea (adult) (pediatric); E78.5 Hyperlipidemia, unspecified; F41.9 Anxiety disorder, unspecified; F32.A Depression, unspecified
CPT/HCPCS: 99396

== ENCOUNTER 2024-01-08 09:20 | Outpatient (AMB) | payer OTHER, SELFPAY ==
--- NOTE | 2024-01-08 09:39 | A.OFFPC_ITS ---
Vital Signs 01/08/24 09:51 Height 5 ft 9 in Weight 192 lb BMI 28.4 BP 142/78 H Blood Pressure Location Rt brachial Position Sitting Pulse 66 Pulse Source Pulse Oximeter Pulse Oximetry (%) 96 Oxygen Delivery Method Room Air Intake Visit Reasons: 6M F/U Intake Note: Pt is here today for his 6mo. f/u DM Allergies No Known Allergies [No Known Allergies*] Allergy (Verified 01/08/24 10:09) Medication List - Last Reconciled 01/08/24 by Mariza Berman MD atorvastatin 10 mg PO DAILY blood sugar diagnostic (FreeStyle Lite Strips) Test blood sugar once a day blood-glucose meter (FreeStyle Lite Meter kit) As directed to test blood sugar once a day budesonide-formoterol 160-4.5 mcg/actuation 2 puffs PO BID fluticasone propionate 50 mcg/actuation 1 spray intranasal DAILY ipratropium bromide 17 mcg/actuation 2 puffs inhalation QID ipratropium-albuterol 20-100 mcg/actuation (Combivent Respimat) 1 puff inhalation QID lancets (FreeStyle Lancets) test blood sugar once a day metformin 1,000 mg PO BIDWMEAL 90 days omeprazole 20 mg PO QAM quetiapine 100 mg PO DAILY tirzepatide (Mounjaro) 2.5 mg (0.5 mL) subcut QWEEK 4 weeks umeclidinium 62.5 mcg/actuation 1 inh inhalation DAILY Tobacco use date assessed: 01/08/24 Dental Screening Dental Screen Date: 01/08/24 Did you have a dental visit in the last 12 months?: No Did you have a dental problem in the last 6 months where you did not have access to dental care?: No Was dental information given to patient?: Patient declined HPI 6M F/U HPI Details 63-year-old male here today for follow-u p on his diabetes mellitus, and hyperlipidemia. He has been compliant with taking his medications, and has been following recommended diet. Latest hemoglobin A1c as now better at 6%, lower than last check., currently on Mounjaro and metformin Systolic blood Pressure however is elevated on this visit and in previous visits as well [facility] Medical History (Updated 01/08/24 @ 10:25 by Mariza Berman MD) Essential hypertension Decreased hearing of both ears Refused influenza vaccine Anxiety and depression Uncontrolled diabetes mellitus with hyperglycemia, without long-term current use of insulin Vitamin D deficiency Mass of lower lobe of left lung Colon cancer screening Cholelithiasis Benign prostatic hyperplasia GERD without esophagitis Obstructive sleep apnea Migraine Dyslipidemia Type 2 diabetes mellitus without complication, without long-term current use of insulin COPD (chronic obstructive pulmonary disease) Surgical History H/O colonoscopy History of amputation of finger History of prostate biopsy History of tonsillectomy Family History Father No problems noted. Mother Cirrhosis of liver Mental health disorder Maternal Grandfather No problems noted. Maternal Grandmother No problems noted. Paternal Grandfather No problems noted. Paternal Grandmother No problems noted. Brother No problems noted. Son No problems noted. Daughter No problems noted. Son No problems noted. Maternal Aunt Substance use disorder Maternal Uncle Substance use disorder Social History Household Members: Significant Other Housing: House Alcohol intake: former Patient Tobacco Use Status: Former Tobacco user Years Smoked: 40 yrs e-Cigarette/Vaping Use: Never Used service: No Current occupational status: disabled Cognitive needs: No Hearing needs: No Vision needs: No Questionnaire PHQ-9 Over the last 2 weeks, how often have you been bothered by any of the following problems? 1. Little interest or pleasure in doing things: not at all 2. Feeling down, depressed, or hopeless: not at all 3. Trouble falling or staying asleep, or sleeping too much: not at all 4. Feeling tired or having little energy: not at all 5. Poor appetite or overeating: not at all 6. Feeling bad about yourself - or that you are a failure or have let yourself or your family down: not at all 7. Trouble concentrating on things, such as reading the newspaper or watching television: not at all 8. Moving or speaking so slowly that other people could have noticed. Or the opposite - being so fidgety or restless that you have been moving around a lot more than usual: not at all 9. Thoughts that you would be better off or of hurting yourself in some way: not at all Total score: 0 Depression Screening Interpretation: Negative Depression Screening Done: Yes 83120 - PHQ-9 Billing: Yes Source: Developed by Drs. Suleiman Thompson, Cherie Carlos, Frank Esqueda and colleagues, with an educational rock from [employer]. Thrive Questionnaire Date Thrive assessed: 01/08/24 I am a: Patient What is your living situation today?: I choose not to answer this question Within the past 12 months, did the food you bought not last and you didn't have the money to get more?: I choose not to answer this question Within the past 12 months, did you worry whether your food would run out before you got money to buy more?: I choose not to answer this question Do you have trouble paying for medicines?: I choose not to answer this question Do you have trouble getting transportation to medical appointments?: I choose not to answer this question Do you have trouble paying your heating and electricity bill?: I choose not to answer this question Do you have trouble taking care of your child, family member or friend?: I choose not to answer this question Do you have trouble with day-to-day activities such as bathing, preparing meals, shopping, managing finances, etc.?: I choose not to answer this question Are you interested in more education?: I choose not to answer this question Please select the resources that you would like help with: None Currently or been in a relationship where the following occur: I choose not to answer THRIVE Score: 0 AUDIT C Alcohol Use Questionnaire (AUDIT-C) 1. How often do you have a drink containing alcohol?: 4 or more times a week 2. How many drinks containing alcohol do you have on a typical day when you are drinking?: 1 or 2 3. How often do you have six or more drinks on one occasion?: Never Total Score: 4 LAZ-7 AMB Questionnaire LAZ-7 Date LAZ - 7 assessed: 01/08/24 Feeling nervous, anxious, or on edge: 0 = Not at all Not being able to stop or control worryin = Not at all Worrying too much about different things: 0 = Not at all Trouble relaxin = Not at all Being so restless that it is hard to sit still: 0 = Not at all Becoming easily annoyed or irritable: 0 = Not at all Feeling afraid as if something awful might happen: 0 = Not at all Total LAZ-7 score (0-4 normal; 5-9 mild; 10-14 moderate; 15-21 severe): 0 Source: Developed by Drs. Suleiman Thompson, Cherie Carlos, Frank Esqueda and colleagues, with an educational rock from [employer]. LAZ-7 Assessment Billing LAZ-7 Assessment Tool: LAZ-7 Assessment 08457 Review of Systems Const Denies body aches, Denies fatigue, Denies fever(s), Denies headache(s) and Denies weakness Eyes Reports no additional complaints ENT Denies dizziness, Denies headache(s), Denies nasal congestion, Denies nasal discharge and Denies sore throat Card Denies chest pain, Denies lightheadedness and Denies dyspnea Resp Denies chest congestion, Denies cough and Denies dyspnea GI Denies abdominal pain, Denies change in bowel habits and Denies heartburn Denies dysuria and Denies urinary urgency Musc Reports no additional complaints Skin/Breast Denies lesions and Denies rash Neuro Denies dizziness, Denies headache(s) and Denies weakness Psych Reports as per HPI Endo Denies fatigue, Denies polydipsia and Denies polyuria Arben/Lymph Reports no additional complaints Aller/Immun Reports no additional complaints Physical exam (Primary Care) Vital Signs: Last Vital Signs Pulse 66 01/08/24 09:51 BP 142/78 H 01/08/24 09:51 Pulse Ox 96 01/08/24 09:51 Oxygen Delivery Method Room Air 01/08/24 09:51 BMI result Body Mass Index 28.4 Tobacco/Smoking Status: Tobacco use Status Tobacco use date assessed 01/08/24 01/08/24 09:42 Patient Tobacco Use Status Former Tobacco user 01/08/24 09:40 e-Cigarette/Vaping Use Never Used 01/08/24 09:40 PHQ-9: PHQ-9 Score PHQ-9: Total score 0 01/08/24 10:15 Depression Screening Interpretation: Negative Thrive Assessment: Date of Thrive Assessment Date Thrive assessed 01/08/24 01/08/24 09:42 Currently or been in a relationship where the following occur: I choose not to answer Const Other: Alert oriented x3, no acute cardiorespiratory distress Orientation/consciousness: patient oriented x3 HENMT Ears: EAC's normal General nose exam: Normal external nose present and No nasal discharge present Mouth: oropharynx normal and moist mucous membranes Eyes General: appearance normal, both eyes and all related structures Neck Other: Supple, no lymphadenopathy, full range of motion, thyroid gland nonpalpable Resp Auscultation: clear to auscultation bilaterally Cardio Other: S1-S2 present regular rate and rhythm GI Palpation (GI): Soft to palpation, nontender, no guarding and no masses Auscultation: normal bowel sounds General: Yes no CVA tenderness Male General Exam: Yes normal external exam Back/Spine/Pelvis Back: no CVA tenderness and No back tenderness Skin General skin exam: no rashes or lesions noted Neuro General: patient oriented x3, gait normal, moves all extremities and no focal motor deficits Extrem General: Yes normal to inspection, Yes full ROM, Yes no joint enlargement, Yes no pedal edema, Yes no calf tenderness and Yes normal gait Psych Appearance: grossly normal and well kempt Mental Status: mental status grossly normal Speech and movement: Normal speech and movement present Affect: normal affect Attitude: cooperative Thought process: Normal thought process present Results AMB Hemoglobin A1c AMB Hemoglobin A1c 6.0 % Last Edit by Ana Lilia Steel CMA on 01/08/24 10:02 Results Reviewed Results Reviewed: Laboratory Last Values Hgb A1c (Clinic) 6.0 % (4.0-6.0) 01/08/24 09:41 Coding Level of Care Code Est Pt Level 4 (25302) Complex EM visit Add On G2211 Diagnoses Type 2 diabetes mellitus without complication, without long-term current use of insulin E11.9 Dyslipidemia E78.5 Refused influenza vaccine Z28.21 Decreased hearing of both ears H91.93 Essential hypertension I10 Additional Codes LAZ-7 Assessment Billing - LAZ-7 Assessment Tool: LAZ-7 Assessment 22684 ([id number]) Assessment & Plan Assessment & Plan (1) Type 2 diabetes mellitus without complication, without long-term current use of insulin: Code(s): E11.9 - Type 2 diabetes mellitus without complications Category: Medical Plan: Diabetes mellitus stable and well controlled on Mounjaro metformin, will continue on same dose sees [place] [facility] for his diabetes retinopathy screening. Offered flu vaccine but patient, declined COVID booster as well, up-to-date with his pneumonia vaccine and Tdap (2) Dyslipidemia: Code(s): E78.5 - Hyperlipidemia, unspecified Category: Medical Plan: Fasting lipid panel ordered, continue atorvastatin 10 mg daily (3) Refused influenza vaccine: Code(s): Z28.21 - Immunization not carried out because of patient refusal Category: Medical Plan: declines flu vaccine (4) Decreased hearing of both ears: Code(s): H91.93 - Unspecified hearing loss, bilateral Category: Medical Plan: Referred to [facility] in [place] for further evaluation manage (5) Essential hypertension: Code(s): I10 - Essential (primary) hypertension Category: Medical Plan: Started on lisinopril 5 mg taken once a day in a.m.. Reinforced importance of following low-salt diet, see nurse navigator in a month to check blood pressure, Orders: Orders 2 Alanine Aminotransferase 01/08/24 E11.9 - Type 2 diabetes mellitus without complications, E78.5 - Hyperlipidemia, unspecified Aspartate Amino Transferase 01/08/24 E11.9 - Type 2 diabetes mellitus without complications, E78.5 - Hyperlipidemia, unspecified Basic Metabolic Panel Fasting 01/08/24 E11.9 - Type 2 diabetes mellitus without complications, E78.5 - Hyperlipidemia, unspecified AMB Hemoglobin A1c 01/08/24 E11.9 - Type 2 diabetes mellitus without complications Lipid Panel 01/08/24 E11.9 - Type 2 diabetes mellitus without complications, E78.5 - Hyperlipidemia, unspecified Microalbumin, Random (w Creat) 01/08/24 E11.9 - Type 2 diabetes mellitus without complications, E78.5 - Hyperlipidemia, unspecified Referrals Speech and Hearing Referral H91.93 - Unspecified hearing loss, bilateral Medications: New lisinopril 5 mg PO DAILY 30 tabs 2RF Refilled atorvastatin 10 mg PO DAILY 90 tabs 4RF tirzepatide (Mounjaro) 2.5 mg (0.5 mL) subcut QWEEK 2 mL 5RF 4 weeks E11.65 - Type 2 diabetes mellitus with hyperglycemia metformin 1,000 mg PO BIDWMEAL 180 tabs 4RF 90 days
[2024-01-08 09:51] VITALS: BP 142/78; PULSE 66; O2SAT 96; BMI 28.4
== END 2024-01-08 11:11 | disposition home or self-care (01) ==
PROVIDERS: PCP Internal Medicine; Visit Provider Internal Medicine
DX: E11.9 Type 2 diabetes mellitus without complications (principal); E78.5 Hyperlipidemia, unspecified; Z28.21 Immunization not carried out because of patient refusal; H91.93 Unspecified hearing loss, bilateral; I10 Essential (primary) hypertension

== ENCOUNTER → 2024-01-08 09:20 | Outpatient (BNVA) | payer OTHER, SELFPAY | PROVIDERS: PCP Internal Medicine; Visit Provider Internal Medicine ==

== ENCOUNTER 2024-01-08 10:31 | Outpatient (REF) | payer OTHER, SELFPAY ==
[2024-01-08 14:13] LABS: Alanine Aminotransferase 55 U/L (0-40); Anion Gap 15 (12-20); Aspartate Amino Transferase 37 U/L (5-37); Blood Urea Nitrogen 11 mg/dL (9-16); Calcium 9.7 mg/dL (8.4-10.2); Carbon Dioxide 22 mmol/L (22-29); Chloride 107 mmol/L (96-108); Cholesterol 124 mg/dL (<200); Estimated Glomerular Filt Rate > 60; Glucose Fasting 102 mg/dL (60-99); HDL Cholesterol 51 mg/dL (>40); LDL Cholesterol Calculated 61 mg/dL (<100); Potassium 4.3 mmol/L (3.3-5.1); Sodium 140 mmol/L (135-145); Triglycerides 60 mg/dL (<150)
[2024-01-08 14:35] LABS: Microalbum/Creatinine Ratio Ur 7.4 ug/mg cr (<30)
== END 2024-01-08 10:32 | disposition home or self-care (01) ==
LOC: HO.HMGCLDS 10:31
PROVIDERS: PCP Internal Medicine; Visit Provider Internal Medicine
DX: E11.9 Type 2 diabetes mellitus without complications (principal); E78.5 Hyperlipidemia, unspecified; H91.93 Unspecified hearing loss, bilateral; I10 Essential (primary) hypertension; Z79.84 Long term (current) use of oral hypoglycemic drugs; Z79.899 Other long term (current) drug therapy; Z28.21 Immunization not carried out because of patient refusal
CPT/HCPCS: 36415; 80048; 80061; 82043; 82570; 83036; 84450; 84460; 96127; 99212

== ENCOUNTER 2024-01-30 09:01 | Outpatient (REF) | payer OTHER, SELFPAY | END 2024-01-30 09:02 | disposition home or self-care (01) | LOC: HO.SH 09:01 | PROVIDERS: Visit Provider Internal Medicine | DX: Z01.118 Encounter for examination of ears and hearing with other abnormal findings (principal); H90.3 Sensorineural hearing loss, bilateral | CPT/HCPCS: 92557 ==

== ENCOUNTER → 2024-02-13 09:50 | Outpatient (BNVA) | payer OTHER, SELFPAY | PROVIDERS: PCP Internal Medicine ==

== ENCOUNTER 2024-10-21 08:32 | Outpatient (REF) | payer OTHER, SELFPAY ==
[2024-10-21 10:37] LABS: Hemoglobin A1C 156.1222 umol/L; Total Hemoglobin (HGBA1C) 3932.8550 umol/L
[2024-10-21 10:51] LABS: Alanine Aminotransferase 39 U/L (0-40); Albumin Level 4.4 g/dL (3.5-5.0); Alkaline Phosphatase 61 U/L (39-117); Anion Gap 10 (12-20); Aspartate Amino Transferase 28 U/L (5-37); Blood Urea Nitrogen 10 mg/dL (9-16); Calcium 9.3 mg/dL (8.4-10.2); Carbon Dioxide 24 mmol/L (22-29); Chloride 109 mmol/L (96-108); Cholesterol 130 mg/dL (<200); Estimated Glomerular Filt Rate > 60; HDL Cholesterol 49 mg/dL (>40); Potassium 4.2 mmol/L (3.3-5.1); Sodium 139 mmol/L (135-145); Total Protein 7.2 g/dL (6.5-8.0); Triglycerides 58 mg/dL (<150)
[2024-10-21 11:12] LABS: Microalbum/Creatinine Ratio Ur 4.6 ug/mg cr (<30)
== END 2024-10-21 08:33 | disposition home or self-care (01) ==
LOC: HO.HMGCLDS 08:32
PROVIDERS: PCP Internal Medicine; Visit Provider Internal Medicine
DX: E11.9 Type 2 diabetes mellitus without complications (principal); I10 Essential (primary) hypertension; K21.9 Gastro-esophageal reflux disease without esophagitis; E78.5 Hyperlipidemia, unspecified
CPT/HCPCS: 36415; 80053; 80061; 82043; 82570; 83036

== ENCOUNTER 2025-01-27 09:56 | Outpatient (REF) | payer OTHER, SELFPAY ==
[2025-01-27 13:56] LABS: Alanine Aminotransferase 36 U/L (0-40); Anion Gap 7 (12-20); Aspartate Amino Transferase 33 U/L (5-37); Blood Urea Nitrogen 14 mg/dL (9-16); Calcium 9.4 mg/dL (8.4-10.2); Carbon Dioxide 28 mmol/L (22-29); Chloride 104 mmol/L (96-108); Cholesterol 142 mg/dL (<200); Estimated Glomerular Filt Rate > 60; HDL Cholesterol 51 mg/dL (>40); Potassium 4.0 mmol/L (3.3-5.1); Sodium 135 mmol/L (135-145); Triglycerides 71 mg/dL (<150)
== END 2025-01-27 09:57 | disposition home or self-care (01) ==
LOC: HO.HMGCLDS 09:56
PROVIDERS: PCP Internal Medicine; Visit Provider Internal Medicine
DX: Z12.5 Encounter for screening for malignant neoplasm of prostate (principal); I10 Essential (primary) hypertension; E11.9 Type 2 diabetes mellitus without complications; E78.5 Hyperlipidemia, unspecified; E55.9 Vitamin D deficiency, unspecified
CPT/HCPCS: 36415; 80048; 80061; 82043; 82570; 83036; 84450; 84460

== ENCOUNTER 2025-02-02 08:44 | Outpatient (AMB) | payer OTHER, SELFPAY ==
--- NOTE | 2025-02-02 09:11 | MHC.PC.OV ---
Vital Signs 02/02/25 09:15 Height 5 ft 9 in Weight 164 lb BMI 24.2 BP 124/64 Blood Pressure Location Rt brachial Position Sitting Respiration 16 Pulse 76 Pulse Source Pulse Oximeter Temp 97.8 F Temp Source Oral Pulse Oximetry (%) 96 Oxygen Delivery Method Room Air Intake Visit Reasons: Annual PE- A1C needed Intake Note: Pt is here today for his PE Allergies No Known Allergies (No Known Allergies*) Allergy (Verified 02/02/25 09:32) Medication List - Last Reconciled 02/02/25 by Mariza Berman MD aspirin (Gala Low Dose Aspirin) 81 mg PO DAILY atorvastatin 10 mg PO DAILY blood sugar diagnostic ([employer] Lite Strips) Test blood sugar once a day blood-glucose meter ([employer]StV2contact Lite Meter kit) As directed to test blood sugar once a day budesonide-formoterol 160-4.5 mcg/actuation 2 puffs PO BID fluticasone propionate 50 mcg/actuation 1 spray intranasal DAILY ipratropium bromide 17 mcg/actuation 2 puffs inhalation QID ipratropium-albuterol 20-100 mcg/actuation (Combivent Respimat) 1 puff inhalation QID lancets (FreeStyle Lancets) test blood sugar once a day lisinopril 5 mg PO DAILY metformin 1,000 mg PO BIDWMEAL 90 days Mounjaro (tirzepatide) 2.5 mg (0.5 mL) subcut QWEEK 4 weeks NS omeprazole 20 mg PO QAM quetiapine 100 mg PO DAILY umeclidinium 62.5 mcg/actuation 1 inh inhalation DAILY Tobacco use date assessed: 02/02/25 Dental Screening Dental Screen Date: 02/02/25 Did you have a dental visit in the last 12 months?: Yes Did you have a dental problem in the last 6 months where you did not have access to dental care?: No Was dental information given to patient?: Patient has dentist HPI Annual PE- A1C needed HPI Details 64-year-old male with past medical history significant for dyslipidemia, diabetes mellitus, hypertension, anxiety depression, GERD with out esophagitis, obstructive sleep apnea not on CPAP, migraine headache and COPD, here today for his physical exam. He has diabetes well controlled on metformin a 1000 mg taken 1 tablet twice a day with meals, and Mounjaro 2.5 mg once a week latest hemoglobin A1c came back at 5.9% with no urine microalbuminuria present. Goes to [facility] for his diabetes retinopathy screening and routine eye exam. Currently on atorvastatin 10 mg daily for treatment of dyslipidemia with latest fasting lipids within normal limits. Blood pressure stable and controlled on present treatment lisinopril 5 mg daily. He penn slost weight through diet and exercise, from 230 lbs down to 164 lbs, He exercises daily by riding his bike. He denies smoking. Currently taking omeprazole for chronic GERD with esophagitis, He has a lung nodule found incidentally on CT scan, gets low-dose CT scan screenings yearly H e is also currently being followed by Dr. Reyna for his asthma / COPD overlap syndrome, currently on Combivent Respimat, and budesonide- formoterol, inhaler He had a colonoscopy when he was in his 50s where a polyp was removed, with a recommendation for a 10-year follow-up. He has a history of an enlarged prostate and underwent a prostate biopsy , an experience he describes as traumatic, does not want to be referred to urology for follow-up. He received pneumonia vaccines in 2016 and 2017 but declines flu and COVID shots. [facility] Medical History (Updated 02/07/25 @ 19:42 by Mariza Berman MD) Essential hypertension Decreased hearing of both ears Refused influenza vaccine Vitamin D deficiency Mass of lower lobe of left lung Colon cancer screening Cholelithiasis Benign prostatic hyperplasia GERD without esophagitis Obstructive sleep apnea Migraine Dyslipidemia Type 2 diabetes mellitus without complication, without long-term current use of insulin COPD (chronic obstructive pulmonary disease) Surgical History H/O colonoscopy History of amputation of finger History of prostate biopsy History of tonsillectomy Family History Father No problems noted. Mother Cirrhosis of liver Mental health disorder Maternal Grandfather No problems noted. Maternal Grandmother No problems noted. Paternal Grandfather No problems noted. Paternal Grandmother No problems noted. Brother No problems noted. Son No problems noted. Daughter No problems noted. Son No problems noted. Maternal Aunt Substance use disorder Maternal Uncle Substance use disorder Social History Household Members: Significant Other Housing: House Alcohol intake: former Patient Tobacco Use Status: Former Tobacco user Years Smoked: 40 yrs e-Cigarette/Vaping Use: Never Used service: No Current occupational status: disabled Cognitive needs: No Hearing needs: No Vision needs: No Questionnaire PHQ-9 Over the last 2 weeks, how often have you been bothered by any of the following problems? 1. Little interest or pleasure in doing things: not at all 2. Feeling down, depressed, or hopeless: not at all 3. Trouble falling or staying asleep, or sleeping too much: not at all 4. Feeling tired or having little energy: not at all 5. Poor appetite or overeating: not at all 6. Feeling bad about yourself - or that you are a failure or have let yourself or your family down: not at all 7. Trouble concentrating on things, such as reading the newspaper or watching television: not at all 8. Moving or speaking so slowly that other people could have noticed. Or the opposite - being so fidgety or restless that you have been moving around a lot more than usual: not at all 9. Thoughts that you would be better off or of hurting yourself in some way: not at all Total score: 0 Depression Screening Interpretation: Negative Depression Screening Done: Yes 91908 - PHQ-9 Billing: Yes Source: Developed by Drs. Suleiman Thompson, Cherie Carlos, Frank Esqueda and colleagues, with an educational rock from [employer]. Thrive Questionnaire Date Thrive assessed: 02/02/25 I am a: Patient What is your living situation today?: I have a steady place to live Within the past 12 months, did the food you bought not last and you didn't have the money to get more?: Often true Within the past 12 months, did you worry whether your food would run out before you got money to buy more?: Often true Do you have trouble paying for medicines?: Yes Do you have trouble getting transportation to medical appointments?: No Do you have trouble paying your heating and electricity bill?: Yes Do you have trouble taking care of your child, family member or friend?: No Do you have trouble with day-to-day activities such as bathing, preparing meals, shopping, managing finances, etc.?: No Are you currently unemployed and looking for a job?: No Are you interested in more education?: No Please select the resources that you would like help with: None Currently or been in a relationship where the following occur: No concerns reported THRIVE Score: 3 AUDIT C Alcohol Use Questionnaire (AUDIT-C) 1. How often do you have a drink containing alcohol?: 2-4 times a month 2. How many drinks containing alcohol do you have on a typical day when you are drinking?: 1 or 2 3. How often do you have six or more drinks on one occasion?: Never Total Score: 2 LAZ-7 AMB Questionnaire LAZ-7 Date LAZ - 7 assessed: 02/02/25 Feeling nervous, anxious, or on edge: 0 = Not at all Not being able to stop or control worryin = Not at all Worrying too much about different things: 0 = Not at all Trouble relaxin = Not at all Being so restless that it is hard to sit still: 0 = Not at all Becoming easily annoyed or irritable: 0 = Not at all Feeling afraid as if something awful might happen: 0 = Not at all Total LAZ-7 score (0-4 normal; 5-9 mild; 10-14 moderate; 15-21 severe): 0 Source: Developed by Drs. Suleiman Thompson, Cherie Carlos, Frank Esqueda and colleagues, with an educational rock from [employer]. LAZ-7 Assessment Billing LAZ-7 Assessment Tool: LAZ-7 Assessment 83208 Review of Systems Const Denies body aches, Denies fatigue, Denies fever(s), Denies headache(s) and Denies weakness Eyes Reports no additional complaints ENT Denies dizziness and Denies headache(s) Card Denies chest pain, Denies lightheadedness and Denies dyspnea Resp Denies chest congestion, Denies cough and Denies dyspnea GI Denies abdominal pain, Denies change in bowel habits and Denies heartburn Denies dysuria and Denies urinary urgency Musc Reports no additional complaints Skin/Breast Details: Reports acne on his back, nose, and scalp. Reports a 'zit' that has formed a lump on his back, and another on his chest. Denies lesions and Denies rash Neuro Denies dizziness, Denies headache(s) and Denies weakness Psych Reports no additional complaints Endo Denies fatigue, Denies polydipsia and Denies polyuria Arben/Lymph Reports no additional complaints Aller/Immun Reports no additional complaints Physical exam (Primary Care) Vital Signs: Last Vital Signs Temp 97.8 F 02/02/25 09:15 Pulse 76 02/02/25 09:15 Resp 16 02/02/25 09:15 BP 124/64 02/02/25 09:15 Pulse Ox 96 02/02/25 09:15 Oxygen Delivery Method Room Air 02/02/25 09:15 BMI result Body Mass Index 24.2 Tobacco/Smoking Status: Tobacco use Status Tobacco use date assessed 02/02/25 02/02/25 09:19 Patient Tobacco Use Status Former Tobacco user 02/02/25 09:12 e-Cigarette/Vaping Use Never Used 02/02/25 09:12 PHQ-9: PHQ-9 Score PHQ-9: Total score 0 02/07/25 19:54 Depression Screening Interpretation: Negative Thrive Assessment: Date of Thrive Assessment Date Thrive assessed 02/02/25 02/07/25 19:54 Currently or been in a relationship where the following occur: No concerns reported Advance Care Planning discussion: Completed/Scanned Date of discussion: 02/02/25 Who was present: Patient Forms completed: Health Care Proxy Time spent: 16-45 minutes Actual minutes spent: 1 Const Other: Alert oriented x3, no acute cardiorespiratory distress HENMT Ears: EAC's normal General nose exam: Normal external nose present Mouth: moist mucous membranes Eyes General: appearance normal, both eyes and all related structures Neck Other: Supple, no lymphadenopathy, full range of motion, thyroid gland nonpalpable Resp Auscultation: clear to auscultation bilaterally Cardio Other: S1-S2 present regular rate and rhythm GI Palpation (GI): Soft to palpation, nontender, no guarding and no masses Auscultation: normal bowel sounds General: Yes no CVA tenderness Male General Exam: Yes normal external exam Back/Spine/Pelvis Back: no CVA tenderness and No back tenderness Skin Other: Slightly raised lesion on back of neck and a nodular lesion on mid back, nontender to palpation Neuro General: gait normal, moves all extremities and no focal motor deficits Extrem General: Yes normal to inspection, Yes full ROM, Yes no joint enlargement, Yes no pedal edema, Yes no calf tenderness and Yes normal gait Psych Appearance: grossly normal and well kempt Mental Status: mental status grossly normal Speech and movement: Normal speech and movement present Affect: normal affect Results Reviewed Results Reviewed: Name: Adryan Nava Age/Sex: 64/M : 1960 Unit#: [id number] Attend Dr: Mariza Berman MD Re01/27/25 Status: DEP REF Location: [facility] Disch: SPEC : [id number] ANUP: 01/27/25 STATUS: COMP REQ : [id number] RECD: 01/27/[address]: Mariza Berman MD COMP: 01/27/25 ENTERED: 01/27/[address]: ORDERED: Met Prof Fast, AST, ALT, Lipid Panel Test Result Flag Reference Sodium 135 135-145 mmol/L Potassium 4.0 3.3-5.1 mmol/L CL 104 96-108 mmol/L CO2 28 22-29 mmol/L Gap 7 L 12-20 BUN 14 9-16 mg/dL Creat 0.85 0.5-1.4 mg/dL eGFR > 60 Chronic Kidney Disease: Estimated GFR < 60 mL/min/1.73m2 Severe Kidney Disease: Estimated GFR < 15 mL/min/1.73m2 FBS 82 60-99 mg/dL CA 9.4 8.4-10.2 mg/dL AST (GOT) 33 5-37 U/L ALT (GPT) 36 0-40 U/L Triglyceride 71 <150 mg/dL Desirable Triglyceride: less than 150 mg/dL Borderline High Triglyceride 150-199 mg/dL High Triglyceride: 200-499 mg/dL Very High Triglyceride: greater than or equal to 5OO mg/dL Cholesterol 142 <200 mg/dL Desirable Cholesterol: less than 200 mg/dL Borderline High Cholesterol: 200-239 mg/dL High Cholesterol: greater than 239 mg/dL LDL Calculated 77 <100 mg/dL Desirable LDL: less than 100 mg/dL Near Optimal/Above Optimal LDL: 110-129 mg/dL Borderline High LDL: 130-159 mg/dL High LDL: 160-189 mg/dL Very High LDL: greater than or equal to 190 mg/dL HDL 51 >40 mg/dL Desirable HDL: greater than 40 mg/dL Note: This HDL assay may give artificially low results in patients with liver disease. Laboratory Tests 07/26/23 01/08/24 01/27/25 08:13 09:41 09:58 Estimat Average Glucose 123 Hgb A1c (Clinic) 6.0 Hemoglobin A1c % 6.8 H 5.9 Urine Creatinine 49.27 Urine Microalbumin < 5.0 Microalb/Creat Ratio [facility] Coding Level of Care Code Est Pt Prev Care 40-64y(39909) Diagnoses Annual visit for general adult medical examination with abnormal findings Z00.01 Mass of skin of abdomen R22.2 Mass of neck R22.1 Skin cancer screening Z12.83 Type 2 diabetes mellitus without complication, without long-term current use of insulin E11.9 Dyslipidemia E78.5 Essential hypertension I10 GERD without esophagitis K21.9 Benign prostatic hyperplasia, unspecified whether lower urinary tract symptoms present N40.0 Lower urinary tract symptom presence: unspecified whether lower urinary tract symptoms present Chronic obstructive pulmonary disease, unspecified COPD type J44.9 COPD type: unspecified COPD Mass of lower lobe of left lung R91.8 Advance directive discussed with patient Z71.89 Additional Codes LAZ-7 Assessment Billing - LAZ-7 Assessment Tool: LAZ-7 Assessment 21618 ([id number]) PHQ-9 - 23181 - PHQ-9 Billing: Yes ([id number]) Vital Signs *Quality* - Advance Care Planning discussion: Completed/Scanned ([id number]) Vital Signs *Quality* - Time spent: 16-45 minutes ([id number]) Assessment & Plan Assessment & Plan (1) Annual visit for general adult medical examination with abnormal findings: Code(s): Z00.01 - Encounter for general adult medical examination with abnormal findings Plan: Reviewed recent fasting lab results with patient.. Recommended dental visit every 6 months and regular eye exams, every year, goes to [facility]. Take adequate calcium in diet and vitamin-D 3 at 2000 IU per cap once a day, in addition to weight-bearing exercises to help maintain good muscle tone and weight control. Instructed to do self-2 cigarettes exam check for any mass. Cologuard ordered for colon cancer screening. Declined flu vaccination offered (2) Mass of skin of abdomen: Code(s): R22.2 - Localized swelling, mass and lump, trunk Plan: Referred to dermatology (3) Mass of neck: Code(s): R22.1 - Localized swelling, mass and lump, neck Plan: Referral to dermatology ordered (4) Skin cancer screening: Code(s): Z12.83 - Encounter for screening for malignant neoplasm of skin Plan: Referral to dermatology ordered (5) Type 2 diabetes mellitus without complication, without long-term current use of insulin: Code(s): E11.9 - Type 2 diabetes mellitus without complications Category: Medical Plan: Recent lab results reviewed with patient, with sugar and hemoglobin A1c stable and at goal continued on Mounjaro and metformin at the same dose., Reinforced diabetic diet and regular exercise with patient. Counseled regarding importance of yearly diabetes retinopathy screening. Patient advised to inspect feet daily, for any signs of injury, callus or infection. Compliance with diet and regular exercise again stressed. Blood pressure goal is less than 130/80, goal LDL is less than 100 and goal hemoglobin A1c is less than 7% follow-up appointment made in--June 2025, after fasting labs done. (6) Dyslipidemia: Code(s): E78.5 - Hyperlipidemia, unspecified Category: Medical Plan: Reviewed recent fasting lipid profile with patient with levels within normal limits . Continue atorvastatin 10 mg daily , in addition to adherence to low-cholesterol diet and regular exercise, at least 30 minutes 3 to 4 times a week. Advised patient to make healthy food choices, eat more fruits, vegetables, whole grains, wild caught fish and low-fat dairy. Limit amount of meat and fried or fatty food products, as well as processed foods and fast foods. Follow-up scheduled with repeat fasting lipid panel in June 2025 (7) Essential hypertension: Code(s): I10 - Essential (primary) hypertension Category: Medical Plan: Blood pressure at goal of less than 130/80. Continue with current medication. Reinforced importance of following a low sodium diet, getting regular exercise, and lowering stress levels. (8) GERD without esophagitis: Code(s): K21.9 - Gastro-esophageal reflux disease without esophagitis Category: Medical Plan: Currently on omeprazole 40 mg daily (9) Benign prostatic hyperplasia: Code(s): N40.0 - Benign prostatic hyperplasia without lower urinary tract symptoms Category: Medical Qualifiers: Lower urinary tract symptom presence: unspecified whether lower urinary tract symptoms present Qualified Code(s): N40.0 - Benign prostatic hyperplasia without lower urinary tract symptoms Plan: Declined screening for prostate cancer or referral to Urology, patient denies any urinary symptoms (10) COPD (chronic obstructive pulmonary disease): Code(s): J44.9 - Chronic obstructive pulmonary disease, unspecified Category: Medical Qualifiers: COPD type: unspecified COPD Qualified Code(s): J44.9 - Chronic obstructive pulmonary disease, unspecified Plan: Followed by Pulmonary Clinic (11) Mass of lower lobe of left lung: Comment: 8 mm oval nodule on left medial lower lobe seen on low-dose CT scan done 06/13/2020, increasing in size previous size was 5.5 mm Gets yearly low-dose CT scan screening, now sees Dr. Lakeisha Barone Code(s): R91.8 - Other nonspecific abnormal finding of lung field Category: Medical Plan: Gets yearly lung cancer screening (12) Advance directive discussed with patient: Code(s): Z71.89 - Other specified counseling Plan: Initiated the conversation about Advanced Directives. Advanced Directives help patients prepare for current and future decisions about their medical treatment and place of care. Discussed with patient that it is a process where a patients current condition and prognosis are reviewed, their wishes for information regarding their illness are elicited, and likely medical dilemmas are presented and options discussed. Healthcare proxy form completed today. The form can be amended as needed, reviewed yearly and make changes as needed Orders: Referrals Dermatology Referral R22.1 - Localized swelling, mass and lump, neck, R22.2 - Localized swelling, mass and lump, trunk, Z12.83 - Encounter for screening for malignant neoplasm of skin Cologuard Test Z12.11 - Encounter for screening for malignant neoplasm of colon, Z12.12 - Encounter for screening for malignant neoplasm of rectum Medications: Refilled Mounjaro (tirzepatide) 2.5 mg (0.5 mL) subcut QWEEK 2 mL 5RF 4 weeks NS E11.65 - Type 2 diabetes mellitus with hyperglycemia Discontinued quetiapine Discontinued Reason: Patient no longer taking 100 mg PO DAILY 30 tabs 5RF
[2025-02-02 09:15] VITALS: BP 124/64; PULSE 76; RESP 16; TEMP 36.6; O2SAT 96; BMI 24.2
== END 2025-02-02 09:56 | disposition home or self-care (01) ==
LOC: HO.HMCC 08:46
PROVIDERS: PCP Internal Medicine; Visit Provider Internal Medicine
DX: Z00.01 Encounter for general adult medical examination with abnormal findings (principal); R22.2 Localized swelling, mass and lump, trunk; R22.1 Localized swelling, mass and lump, neck; Z12.83 Encounter for screening for malignant neoplasm of skin; E11.9 Type 2 diabetes mellitus without complications; E78.5 Hyperlipidemia, unspecified; I10 Essential (primary) hypertension; K21.9 Gastro-esophageal reflux disease without esophagitis; N40.0 Benign prostatic hyperplasia without lower urinary tract symptoms; J44.9 Chronic obstructive pulmonary disease, unspecified; R91.8 Other nonspecific abnormal finding of lung field; Z71.89 Other specified counseling

== ENCOUNTER → 2025-02-02 08:44 | Outpatient (BNVA) | payer OTHER, SELFPAY | PROVIDERS: PCP Internal Medicine; Visit Provider Internal Medicine | DX: Z00.01 Encounter for general adult medical examination with abnormal findings (principal); E11.9 Type 2 diabetes mellitus without complications; E78.5 Hyperlipidemia, unspecified; I10 Essential (primary) hypertension; K21.9 Gastro-esophageal reflux disease without esophagitis; J44.89 Other specified chronic obstructive pulmonary disease; R22.2 Localized swelling, mass and lump, trunk; R22.1 Localized swelling, mass and lump, neck; E11.65 Type 2 diabetes mellitus with hyperglycemia; Z12.83 Encounter for screening for malignant neoplasm of skin; Z71.89 Other specified counseling; Z79.84 Long term (current) use of oral hypoglycemic drugs; Z79.899 Other long term (current) drug therapy | CPT/HCPCS: 96127; 99396; 99497 ==